=== PATIENT | male | born 1965 | race Caucasian/White ===

== ENCOUNTER 2019-06-03 06:20 | Inpatient (IN) ==
[2019-06-03] MEDS ORDERED: NiCARdipine 2.5 MG/10 ML Syringe IVPB ONE ×2 (06:24→09:36)
[2019-06-03] MEDS ORDERED: *HR* Midazolam HCl 5 MG/5 ML VIAL IVP ONE ×2 (06:31→11:29)
[2019-06-03] MEDS ORDERED: *HR* Etomidate 20 MG/10 ML AMPUL IVP ONE (06:32)
[2019-06-03] MEDS ORDERED: Famotidine 20 MG/2 ML VIAL ONE (06:32)
[2019-06-03] MEDS ORDERED: *HR* PHENYLEPHRINE 1,000 MCG/10 ML SYRINGE IVP ONE (06:32)
[2019-06-03] MEDS ORDERED: *HR* FentaNYL (PF) 1,000 MCG/20 ML VIAL ONE (06:32)
[2019-06-03] MEDS ORDERED: *HR* Rocuronium Bromide 50 MG/5 ML VIAL ONE ×3 (06:32→11:31)
[2019-06-03] MEDS ORDERED: Tranexamic Acid 1,000 MG/10 ML VIAL ONE ×2 (06:37→09:51)
[2019-06-03] MEDS ORDERED: Calcium Gluconate 1,000 MG/10 ML VIAL ONE (06:37)
[2019-06-03] MEDS ORDERED: Protamine Sulfate 250 MG/25 ML VIAL IVP ONE (06:37)
[2019-06-03] MEDS ORDERED: Clindamycin 900 MG/50 ML 900 MG/50 ML IV.SOLN IVPB ONE (06:59)
[2019-06-03] MEDS ORDERED: Albuterol 2.5 MG/3 ML NEBULIZER IH PRN ×2 (07:23→12:55)
[2019-06-03] MEDS ORDERED: Ringers Solution, Lactated 1,000 ML IVC SCH (07:30)
[2019-06-03] MEDS ORDERED: Aspirin 81 MG TAB.CHEW PO ONE (07:30)
[2019-06-03] MEDS: Chlorhexidine Rinse 15 ML MOUTHWASH MM SCH ×3 (07:35→21:09)
[2019-06-03] MEDS ORDERED: Dextrose 50 % in Water (Vial) 30 ML, Sodium Bicarbonate 20 MEQ, Potassium Chloride 15 M... TH ONE (07:45)
[2019-06-03] MEDS ORDERED: Norepinephrine 4 MG in 0.9 % Sodium Chloride 250 ML IVC PRN (07:45)
[2019-06-03] MEDS ORDERED: Insulin Human Regular 100 UNIT in 0.9 % Sodium Chloride 100 ML IV PRN (07:45)
[2019-06-03] MEDS ORDERED: Heparin 15,000 UNIT in 0.9 % Sodium Chloride 500 ML IV ONE (07:45)
[2019-06-03] MEDS ORDERED: Dextrose 50 % in Water (Vial) 30 ML, Sodium Bicarbonate 20 MEQ, Lidocaine 1% 5 ML, Insu... TH ONE ×3 (07:45)
[2019-06-03 08:26] LABS: ABG Base Excess -2 mEq/L (-2 to 3); ABG Chloride 108 mEq/L (98-107); ABG Glucose 120 mg/dL (60-95); ABG HCO3 24 mEq/L (21-27); ABG Ionized Calcium 1.27 mmol/L (1.15-1.35); ABG Oxygen Saturation 100 % (95-98); ABG PCO2 45 mmHg (35-45); ABG PH 7.34 pH Units (7.32-7.45); ABG PO2 316 mmHg (85-104); ABG TCO2 26 mEq/L (20-26)
[2019-06-03] MEDS ORDERED: niCARdipine 40 MG/200 ML MLS IVC ONE (09:22)
[2019-06-03 09:39] LABS: ABG Base Excess -4 mEq/L (-2 to 3); ABG Chloride 108 mEq/L (98-107); ABG Glucose 163 mg/dL (60-95); ABG HCO3 24 mEq/L (21-27); ABG Ionized Calcium 1.23 mmol/L (1.15-1.35); ABG Oxygen Saturation 98 % (95-98); ABG PCO2 54 mmHg (35-45); ABG PH 7.26 pH Units (7.32-7.45); ABG PO2 129 mmHg (85-104); ABG TCO2 26 mEq/L (20-26)
[2019-06-03] MEDS ORDERED: Esmolol 100 MG/10 ML VIAL IVP ONE (09:42)
[2019-06-03 10:25] LABS: ABG Base Excess 0 mEq/L (-2 to 3); ABG Chloride 104 mEq/L (98-107); ABG Glucose 236 mg/dL (60-95); ABG HCO3 26 mEq/L (21-27); ABG Ionized Calcium 1.08 mmol/L (1.15-1.35); ABG Oxygen Saturation 100 % (95-98); ABG PCO2 50 mmHg (35-45); ABG PH 7.33 pH Units (7.32-7.45); ABG PO2 600 mmHg (85-104); ABG TCO2 28 mEq/L (20-26)
[2019-06-03 11:00] LABS: ABG Base Excess -3 mEq/L (-2 to 3); ABG Chloride 103 mEq/L (98-107); ABG Glucose 233 mg/dL (60-95); ABG HCO3 24 mEq/L (21-27); ABG Ionized Calcium 1.09 mmol/L (1.15-1.35); ABG Oxygen Saturation 100 % (95-98); ABG PCO2 48 mmHg (35-45); ABG PO2 407 mmHg (85-104); ABG TCO2 25 mEq/L (20-26)
[2019-06-03] MEDS ORDERED: *HR* FentaNYL (PF) 250 MCG/5 ML VIAL ONE (11:29)
[2019-06-03 11:35] LABS: ABG Base Excess -1 mEq/L (-2 to 3); ABG Chloride 104 mEq/L (98-107); ABG Glucose 178 mg/dL (60-95); ABG HCO3 26 mEq/L (21-27); ABG Oxygen Saturation 100 % (95-98); ABG PCO2 54 mmHg (35-45); ABG PH 7.29 pH Units (7.32-7.45); ABG PO2 518 mmHg (85-104); ABG TCO2 28 mEq/L (20-26)
[2019-06-03] MEDS ORDERED: Albumin Human 5% 50.0 GM/1,000 ML VIAL ONE (11:49)
[2019-06-03 12:10] LABS: ABG Base Excess -3 mEq/L (-2 to 3); ABG Chloride 106 mEq/L (98-107); ABG Glucose 137 mg/dL (60-95); ABG HCO3 24 mEq/L (21-27); ABG Ionized Calcium 1.41 mmol/L (1.15-1.35); ABG Oxygen Saturation 97 % (95-98); ABG PCO2 53 mmHg (35-45); ABG PH 7.27 pH Units (7.32-7.45); ABG PO2 99 mmHg (85-104); ABG TCO2 26 mEq/L (20-26)
[2019-06-03] MEDS ORDERED: Naloxone 0.4 MG/ML INJ IVP PRN (12:55)
[2019-06-03] MEDS ORDERED: Ondansetron 4 MG/2 ML VIAL IVP PRN (12:55)
[2019-06-03] MEDS ORDERED: Acetaminophen 650 MG RECTAL SUPP RC PRN (12:55)
[2019-06-03] MEDS ORDERED: Potassium Chloride 40 MEQ/200 ML BAG IVPB PRN (12:55)
[2019-06-03] MEDS ORDERED: *HR* Dextrose 50 % in Water (Syg) 50 ML SYRINGE IVP PRN (12:55)
[2019-06-03] MEDS ORDERED: Insulin Regular, Human 100 UNIT/ML IV PRN (12:55)
[2019-06-03] MEDS ORDERED: Calcium Gluconate 1gm/50mL 1 GM/50 ML BAG IVPB PRN (12:55)
[2019-06-03] MEDS ORDERED: Acetaminophen 325 MG TABLET PO PRN (12:55)
[2019-06-03] MEDS ORDERED: 0.9 % Sodium Chloride w KCl 20 MEQ/1,000 ML MLS IVC SCH (13:00)
[2019-06-03] MEDS ORDERED: Norepinephrine 4 MG in 0.9 % Sodium Chloride 250 ML IVC SCH (13:00)
[2019-06-03] MEDS ORDERED: Insulin Human Regular 100 UNIT in 0.9 % Sodium Chloride 100 ML IVC SCH (13:00)
[2019-06-03] MEDS ORDERED: niCARdipine 20 MG in 0.9 % Sodium Chloride 192 ML IVC SCH (13:00)
[2019-06-03 13:09] LABS: ABG Base Excess -1 mEq/L (-2 to 3); ABG HCO3 27 mEq/L (21-27); ABG Oxygen Saturation 95 % (95-98); ABG PCO2 57 mmHg (35-45); ABG PH 7.28 pH Units (7.32-7.45); ABG PO2 88 mmHg (85-104); ABG TCO2 29 mEq/L (20-26); Blood Gas Modality VC; Blood Gas VT 600 cc
[2019-06-03 13:16] LABS: Basophils # 0.1 K/mcL (0.0-0.2); Basophils % 0.2 %; Eosinophils # 0.1 K/mcL (0.0-0.6); Eosinophils % 0.2 %; Hematocrit 39.1 % (37.5-50.1); Immature Granulocytes % 0.6 % (0-4); Lymphocytes % 8.7 %; Mean Corpuscular HGB Conc 33.5 g/dL (31.6-35.5); Mean Corpuscular Hemoglobin 31.8 pg (28.0-33.3); Mean Corpuscular Volume 94.9 fL (83.0-100.0); Mean Platelet Volume 10.7 fL (9.4-12.4); Monocytes # 1.6 K/mcL (0.0-1.3); Monocytes % 6.9 %; Platelet Count 109 K/mcL (140-400); Red Blood Count 4.12 M/mcL (4.19-5.50); Red Cell Distribution Width 13.5 % (11.5-14.5); Segmented Neutrophils % 83.4 %
[2019-06-03 13:17] LABS: Hemoglobin 13.1 g/dL (12.9-16.9); Neutrophils # 19.4 K/mcL (1.6-8.9); White Blood Count 23.2 K/mcL (4.3-11.1)
[2019-06-03 13:25] LABS: INR 1.3
[2019-06-03 13:29] LABS: Estimated Average Glucose 134 mg/dl
[2019-06-03 13:33] LABS: BUN/Creatinine Ratio 20 (6-26); Blood Urea Nitrogen 16 mg/dL (6-20); Calcium 8.8 mg/dL (8.6-10.3); Carbon Dioxide 25 mEq/L (23-29); Chloride 111 mEq/L (98-107); Glucose 112 mg/dL (70-105); Magnesium 2.4 mg/dL (1.6-2.6); Osmolality,Calculated 294 (280-300); Potassium 4.6 mEq/L (3.5-5.1); Sodium 141 mEq/L (136-145); eGFR For African Americans > 60 (> 60); eGFR For Non-African Americans > 60 (> 60)
[2019-06-03] MEDS: Pantoprazole 40 MG VIAL IVP SCH (13:43)
[2019-06-03] MEDS: Ketorolac 15 MG/ML VIAL IVP SCH ×3 (13:44→23:28)
[2019-06-03 13:45] LABS: Activated Partial Thrombo Time 116.3 Seconds (26.0-36.0); Prothrombin Time 14.7 Seconds (9.4-12.1)
[2019-06-03] MEDS ORDERED: Lidocaine 2% Syringe 100 MG/5 ML IV ONE (14:12)
[2019-06-03] MEDS ORDERED: *HR* Heparin 10,000 UNIT/10 ML VIAL IV ONE (14:12)
[2019-06-03] MEDS ORDERED: Heparin 1,000 UNITS/500 mL IV.SOLN IVC ONE (14:12)
[2019-06-03] MEDS ORDERED: Tranexamic Acid 1,000 MG/10 ML VIAL IVP ONE (14:12)
[2019-06-03] MEDS ORDERED: Mannitol 25% vial 12.5 GM/50 ML VIAL IVP ONE (14:12)
[2019-06-03] MEDS ORDERED: Sodium Bicarbonate 50 MEQ/50 ML VIAL IVC ONE (14:12)
[2019-06-03] MEDS ORDERED: *HR* Phenylephrine 10 MG/ML VIAL IVC ONE (14:12)
[2019-06-03] MEDS ORDERED: Albumin Human 25% 25 GM/100 ML IV.SOLN IV ONE (14:12)
[2019-06-03] MEDS ORDERED: *HR* Magnesium Sulfate 2 GM/50 ML PIGGYBACK IVPB ONE (14:12)
[2019-06-03] MEDS ORDERED: D5% in Water 250 ML IV BAG IV ONE (14:12)
[2019-06-03] MEDS: *HR* OxyCODONE/APAP 5/325 TABLET PO PRN ×2 (14:27→21:08)
[2019-06-03] MEDS: *HR* FentaNYL (PF) 100 MCG/2 ML VIAL IVP PRN ×3 (14:27→22:10)
[2019-06-03] MEDS ORDERED: 0.9 % Sodium Chloride 250 ML ONE (15:28)
[2019-06-03] MEDS: Clindamycin 900 MG/50 ML 900 MG/50 ML IV.SOLN IVPB SCH ×2 (16:39→23:29)
[2019-06-03 17:08] LABS: ABG Base Excess -1 mEq/L (-2 to 3); ABG HCO3 26 mEq/L (21-27); ABG Oxygen Saturation 97 % (95-98); ABG PCO2 49 mmHg (35-45); ABG PH 7.33 pH Units (7.32-7.45); ABG PO2 92 mmHg (85-104); ABG TCO2 27 mEq/L (20-26); Blood Gas Modality CPAP/PS; Blood Gas Pressure Support 5 cm H2O
[2019-06-03] MEDS: Metoclopramide 10 MG/2 ML VIAL IVP SCH ×2 (17:46→23:28)
[2019-06-03 18:21] LABS: ABG Base Excess -2 mEq/L (-2 to 3); ABG HCO3 24 mEq/L (21-27); ABG Oxygen Saturation 96 % (95-98); ABG PCO2 43 mmHg (35-45); ABG PH 7.35 pH Units (7.32-7.45); ABG PO2 87 mmHg (85-104); ABG TCO2 26 mEq/L (20-26)
[2019-06-03] MEDS: Furosemide 20 MG/2 ML VIAL IVP SCH (21:09)
[2019-06-04] MEDS: *HR* OxyCODONE/APAP 5/325 TABLET PO PRN ×4 (03:29→18:41)
[2019-06-04 03:49] LABS: Basophils % 0.2 %; Eosinophils % 0.1 %; Hematocrit 37.1 % (37.5-50.1); Hemoglobin 12.3 g/dL (12.9-16.9); Immature Granulocytes % 0.4 % (0-4); Lymphocytes # 2.3 K/mcL (0.6-4.6); Lymphocytes % 17.4 %; Mean Corpuscular HGB Conc 33.2 g/dL (31.6-35.5); Mean Corpuscular Hemoglobin 31.6 pg (28.0-33.3); Mean Corpuscular Volume 95.4 fL (83.0-100.0); Monocytes # 1.4 K/mcL (0.0-1.3); Monocytes % 10.5 %; Neutrophils # 9.4 K/mcL (1.6-8.9); Platelet Count 117 K/mcL (140-400); Red Blood Count 3.89 M/mcL (4.19-5.50); Red Cell Distribution Width 13.9 % (11.5-14.5); Segmented Neutrophils % 71.4 %; White Blood Count 13.2 K/mcL (4.3-11.1)
[2019-06-04 03:55] LABS: INR 1.1; Prothrombin Time 12.7 Seconds (9.4-12.1)
[2019-06-04 03:57] LABS: Activated Partial Thrombo Time 27.2 Seconds (26.0-36.0)
[2019-06-04 04:14] LABS: BUN/Creatinine Ratio 25 (6-26); Blood Urea Nitrogen 18 mg/dL (6-20); Calcium 8.3 mg/dL (8.6-10.3); Carbon Dioxide 25 mEq/L (23-29); Chloride 109 mEq/L (98-107); Glucose 104 mg/dL (70-105); Osmolality,Calculated 290 (280-300); Potassium 4.3 mEq/L (3.5-5.1); Sodium 139 mEq/L (136-145); eGFR For African Americans > 60 (> 60); eGFR For Non-African Americans > 60 (> 60)
[2019-06-04] MEDS: *HR* FentaNYL (PF) 100 MCG/2 ML VIAL IVP PRN (04:18)
[2019-06-04] MEDS: Ketorolac 15 MG/ML VIAL IVP SCH ×4 (05:49→23:16)
[2019-06-04] MEDS: Metoclopramide 10 MG/2 ML VIAL IVP SCH ×4 (05:49→23:16)
[2019-06-04] MEDS ORDERED: Aspirin 81 MG TAB.CHEW PO ONE (06:00)
[2019-06-04] MEDS: Furosemide 20 MG/2 ML VIAL IVP SCH ×2 (08:48→21:21)
[2019-06-04] MEDS: Chlorhexidine Rinse 15 ML MOUTHWASH MM SCH ×2 (08:48→21:43)
[2019-06-04] MEDS: Pantoprazole 40 MG VIAL IVP SCH (08:48)
[2019-06-04] MEDS ORDERED: Aspirin Enteric Coated 81 MG Tablet PO SCH (09:00)
[2019-06-04] MEDS ORDERED: *HR* Dextrose 50 % in Water (Syg) 50 ML SYRINGE IVP PRN (13:30)
[2019-06-04] MEDS ORDERED: Ondansetron 4 MG/2 ML VIAL IVP PRN (13:30)
[2019-06-04] MEDS ORDERED: Naloxone 0.4 MG/ML INJ IVP PRN (13:30)
[2019-06-04] MEDS ORDERED: Nitroglycerin 0.4 MG TAB.SUBL SL PRN (13:30)
[2019-06-04] MEDS ORDERED: Insulin Regular, Human 100 UNIT/ML IV PRN (13:30)
[2019-06-04] MEDS ORDERED: Albuterol 2.5 MG/3 ML NEBULIZER IH PRN (13:30)
[2019-06-04] MEDS ORDERED: Dextrose Gel 15 GM/37.5 ML TUBE PO PRN ×2 (13:30)
[2019-06-04] MEDS ORDERED: Acetaminophen 325 MG TABLET PO PRN (13:30)
[2019-06-04] MEDS ORDERED: D5% in Water 1,000 ML IVC PRN (13:30)
[2019-06-04] MEDS ORDERED: Insulin Human Regular 100 UNIT in 0.9 % Sodium Chloride 100 ML IVC SCH (13:30)
[2019-06-04] MEDS: *HR* Heparin 5,000 UNIT/ML VIAL SQ SCH ×2 (14:19→18:05)
[2019-06-04] MEDS: Insulin LISPRO 300 UNITS/3 ML VIAL SQ SCH ×3 (15:21→21:22)
[2019-06-04] MEDS: *HR* HYDROmorphone 2 MG/ML SYRINGE IVP PRN ×2 (16:06→21:49)
[2019-06-05] MEDS: *HR* OxyCODONE/APAP 5/325 TABLET PO PRN ×4 (03:58→23:39)
[2019-06-05 04:14] LABS: Eosinophils % 0.8 %; Immature Granulocytes % 0.4 % (0-4); Red Cell Distribution Width 13.4 % (11.5-14.5)
[2019-06-05 04:16] LABS: Basophils % 0.2 %; Eosinophils # 0.1 K/mcL (0.0-0.6); Hematocrit 31.9 % (37.5-50.1); Hemoglobin 10.5 g/dL (12.9-16.9); Immature Platelets 5.8 % (1.1-6.1); Lymphocytes # 1.9 K/mcL (0.6-4.6); Lymphocytes % 15.7 %; Mean Corpuscular HGB Conc 32.9 g/dL (31.6-35.5); Mean Corpuscular Volume 97.3 fL (83.0-100.0); Mean Platelet Volume 11.2 fL (9.4-12.4); Monocytes # 1.2 K/mcL (0.0-1.3); Monocytes % 9.8 %; Neutrophils # 8.6 K/mcL (1.6-8.9); Platelet Count 92 K/mcL (140-400); Red Blood Count 3.28 M/mcL (4.19-5.50); Segmented Neutrophils % 73.1 %; White Blood Count 11.8 K/mcL (4.3-11.1)
[2019-06-05 04:18] LABS: Platelet Estimate Decreased (Normal)
[2019-06-05 04:28] LABS: BUN/Creatinine Ratio 31 (6-26); Blood Urea Nitrogen 22 mg/dL (6-20); Calcium 7.6 mg/dL (8.6-10.3); Carbon Dioxide 25 mEq/L (23-29); Chloride 107 mEq/L (98-107); Glucose 145 mg/dL (70-105); Osmolality,Calculated 288 (280-300); Potassium 3.8 mEq/L (3.5-5.1); Sodium 136 mEq/L (136-145); eGFR For African Americans > 60 (> 60); eGFR For Non-African Americans > 60 (> 60)
[2019-06-05] MEDS: Metoclopramide 10 MG/2 ML VIAL IVP SCH ×4 (05:39→23:38)
[2019-06-05] MEDS: *HR* HYDROmorphone 2 MG/ML SYRINGE IVP PRN ×2 (05:39→13:48)
[2019-06-05] MEDS: Ketorolac 15 MG/ML VIAL IVP SCH ×3 (06:30→17:24)
[2019-06-05] MEDS: *HR* Heparin 5,000 UNIT/ML VIAL SQ SCH ×2 (06:30→17:03)
[2019-06-05] MEDS: Aspirin Enteric Coated 81 MG Tablet PO SCH (08:15)
[2019-06-05] MEDS: Chlorhexidine Rinse 15 ML MOUTHWASH MM SCH ×2 (08:15→20:21)
[2019-06-05] MEDS: Insulin LISPRO 300 UNITS/3 ML VIAL SQ SCH ×4 (08:15→20:23)
[2019-06-05] MEDS: Furosemide 20 MG/2 ML VIAL IVP SCH (08:16)
[2019-06-05] MEDS ORDERED: Pantoprazole 40 MG VIAL IVP SCH (09:00)
[2019-06-06] MEDS: Ketorolac 15 MG/ML VIAL IVP SCH ×2 (00:24→05:16)
[2019-06-06] MEDS: *HR* Heparin 5,000 UNIT/ML VIAL SQ SCH (05:16)
[2019-06-06] MEDS: *HR* OxyCODONE/APAP 5/325 TABLET PO PRN ×2 (05:37→10:32)
[2019-06-06] MEDS: Metoclopramide 10 MG/2 ML VIAL IVP SCH (05:37)
[2019-06-06] MEDS: Aspirin Enteric Coated 81 MG Tablet PO SCH (09:20)
[2019-06-06] MEDS: Insulin LISPRO 300 UNITS/3 ML VIAL SQ SCH (09:20)
[2019-06-06] MEDS: Chlorhexidine Rinse 15 ML MOUTHWASH MM SCH (09:20)
[2019-06-06 15:21] VITALS: BP 118/65
[2019-06-06] MEDS ORDERED: Famotidine 20 MG TABLET PO SCH (21:00)
== END 2019-06-06 12:02 | disposition home or self-care (01) | DRG 236 ==
LOC: SAMDAY 06:20 → ICNU 11:41 → 2NNU 06-04 18:15
PROVIDERS: ADMIT Thoracic Surgery (Cardiothoracic Vascular Surgery); ATTEND Thoracic Surgery (Cardiothoracic Vascular Surgery)

== ENCOUNTER 2021-12-23 23:04 | Inpatient (IN) ==
[2021-12-24 00:58] LABS: Basophils % 0.2 %; Eosinophils # 0.1 K/mcL (0.0-0.6); Eosinophils % 1.4 %; Hemoglobin 14.2 g/dL (12.9-16.9); Immature Granulocytes % 0.1 % (0-4); Lymphocytes # 3.7 K/mcL (0.6-4.6); Mean Corpuscular HGB Conc 33.8 g/dL (31.6-35.5); Mean Corpuscular Hemoglobin 31.8 pg (28.0-33.3); Mean Corpuscular Volume 94.2 fL (83.0-100.0); Mean Platelet Volume 11.2 fL (9.4-12.4); Monocytes # 0.8 K/mcL (0.0-1.3); Monocytes % 9.2 %; Platelet Count 198 K/mcL (140-400); Red Blood Count 4.46 M/mcL (4.19-5.50); Red Cell Distribution Width 13.1 % (11.5-14.5); Segmented Neutrophils % 46.1 %; White Blood Count 8.6 K/mcL (4.3-11.1)
[2021-12-24 01:18] LABS: BUN/Creatinine Ratio 23 (6-26); Blood Urea Nitrogen 19 mg/dL (6-20); Calcium 9.2 mg/dL (8.6-10.3); Carbon Dioxide 22 mEq/L (23-29); Chloride 110 mEq/L (98-107); Glucose 194 mg/dL (70-105); Osmolality,Calculated 296 (280-300); Potassium 4.2 mEq/L (3.5-5.1); Sodium 139 mEq/L (136-145)
[2021-12-24 01:19] LABS: Activated Partial Thrombo Time 29.6 Seconds (26.0-36.0); INR 0.9; Prothrombin Time 10.3 Seconds (9.4-12.1); Troponin I < 0.03 ng/mL (< 0.04)
[2021-12-24] MEDS ORDERED: Morphine Sulfate 2 MG/ML SYRINGE IVP ONE ×2 (01:27→03:25)
[2021-12-24] MEDS ORDERED: Ondansetron 4 MG/2 ML VIAL IVP ONE (01:28)
[2021-12-24] MEDS ORDERED: Iopamidol - 370 500 ML MLS IVP ONE (02:09)
[2021-12-24] MEDS ORDERED: *HR* Heparin 5,000 UNIT/ML VIAL IVP ONE (03:54)
[2021-12-24] MEDS ORDERED: *HR* Heparin 5,000 UNIT/ML VIAL IVP PRN ×2 (03:54)
[2021-12-24] MEDS ORDERED: Prochlorperazine 10 MG/2 ML VIAL IVP PRN (04:29)
[2021-12-24] MEDS ORDERED: Morphine Sulfate 2 MG/ML SYRINGE IVP PRN (04:30)
[2021-12-24] MEDS ORDERED: Acetaminophen 325 MG TABLET PO PRN (04:51)
[2021-12-24] MEDS ORDERED: Naloxone 0.4 MG/ML INJ IVP PRN (04:51)
[2021-12-24] MEDS ORDERED: Ondansetron 4 MG/2 ML VIAL IVP PRN (04:51)
[2021-12-24 04:57] LABS: Amphetamine Screen,Urine Negative ng/mL (Cutoff=1000); Barbiturate Screen,Urine Negative ng/mL (Cutoff=200); Benzodiazepines Screen,Urine Negative ng/mL (Cutoff=200); Cannabinoid Screen,Urine Negative ng/mL (Cutoff = 50); Cocaine Screen,Urine Negative ng/mL (Cutoff= 300); Opiate Screen,Urine Positive ng/mL (Cutoff=300); Phencyclidine Screen,Urine Negative ng/mL (Cutoff=25)
[2021-12-24] MEDS: Heparin 25,000UNIT/250ML 1/2NS 25,000 UNIT/250 ML IV.SOLN IVC SCH (05:01)
[2021-12-24] MEDS ORDERED: Dextrose Gel 15 GM/37.5 ML TUBE PO PRN ×2 (07:38)
[2021-12-24] MEDS ORDERED: *HR* Dextrose 50 % in Water (Syg) 50 ML SYRINGE IVP PRN (07:38)
[2021-12-24] MEDS ORDERED: D5% in Water 1,000 ML IVC PRN (07:38)
[2021-12-24] MEDS: Aspirin Enteric Coated 81 MG Tablet PO SCH (08:27)
[2021-12-24] MEDS: Insulin LISPRO 300 UNITS/3 ML VIAL SUBQ SCH ×2 (11:56→18:16)
[2021-12-24] MEDS ORDERED: *HR* Metoprolol 5 MG/5 ML VIAL IVP PRN (12:07)
[2021-12-24] MEDS ORDERED: *HR* Midazolam HCl 2 MG/2 ML VIAL ONE (15:00)
[2021-12-24] MEDS ORDERED: *HR* FentaNYL (PF) 100 MCG/2 ML VIAL ONE (15:00)
[2021-12-24] MEDS ORDERED: 0.9 % Sodium Chloride 2,000 ML ONE (15:00)
[2021-12-24] MEDS ORDERED: Iopamidol - 370 200 ML INFUS..BTL ONE ×2 (15:00→15:41)
[2021-12-24] MEDS ORDERED: *HR* Heparin 10,000 UNIT/10 ML VIAL ONE (15:00)
[2021-12-24] MEDS ORDERED: Nitroglycerin 1,000 MCG/5 ML VIAL IV ONE (15:00)
[2021-12-24] MEDS ORDERED: Heparin 1,000 UNITS/500 mL 500 ML ONE (15:00)
[2021-12-24] MEDS ORDERED: Tirofiban 12.5 MG/250ML 12.5 MG/250 ML BAG ONE (15:41)
[2021-12-24] MEDS ORDERED: NITROPRUSSIDE IVC ONE (15:52)
[2021-12-24] MEDS ORDERED: SODIUM CHLORIDE IVC ONE (15:52)
[2021-12-24] MEDS ORDERED: Tirofiban 12.5 MG/250ML 12.5 MG/250 ML BAG IVC SCH (16:15)
[2021-12-24] MEDS: carvediloL 6.25 MG TABLET PO SCH (17:03)
[2021-12-24] MEDS: NIFEdipine XL (24 HR) 60 MG TAB.ER.24 PO SCH (17:03)
[2021-12-25] MEDS: Insulin LISPRO 300 UNITS/3 ML VIAL SUBQ SCH ×2 (00:21→06:00)
[2021-12-25 03:34] LABS: Hematocrit 42.8 % (37.5-50.1); Hemoglobin 14.3 g/dL (12.9-16.9); Mean Corpuscular HGB Conc 33.4 g/dL (31.6-35.5); Mean Corpuscular Hemoglobin 31.6 pg (28.0-33.3); Mean Corpuscular Volume 94.5 fL (83.0-100.0); Mean Platelet Volume 11.8 fL (9.4-12.4); Platelet Count 191 K/mcL (140-400); Red Blood Count 4.53 M/mcL (4.19-5.50); Red Cell Distribution Width 13.2 % (11.5-14.5); White Blood Count 9.6 K/mcL (4.3-11.1)
[2021-12-25 04:14] LABS: BUN/Creatinine Ratio 19 (6-26); Blood Urea Nitrogen 16 mg/dL (6-20); Calcium 8.7 mg/dL (8.6-10.3); Carbon Dioxide 21 mEq/L (23-29); Chloride 107 mEq/L (98-107); Chol/HDL Ratio 3.7 (0-4.9); Cholesterol 129 mg/dL (< 200); Glucose 139 mg/dL (70-105); HDL Cholesterol 35 mg/dL (40-59); Magnesium 2.1 mg/dL (1.6-2.6); Osmolality,Calculated 289 (280-300); Potassium 4.1 mEq/L (3.5-5.1); Sodium 138 mEq/L (136-145); Triglycerides 765 mg/dL (< 150)
[2021-12-25] MEDS: Heparin 25,000UNIT/250ML 1/2NS 25,000 UNIT/250 ML IV.SOLN IVC SCH (06:00)
[2021-12-25 06:43] VITALS: BP 126/64; PULSE 67; TEMP 98.8; O2SAT 97
[2021-12-25] MEDS ORDERED: VITAMIN B COMPLEX PO SCH (09:00)
[2021-12-25] MEDS ORDERED: Ascorbic Acid 500 MG TABLET PO SCH (09:00)
[2021-12-25] MEDS ORDERED: Cholecalciferol (D-3) 1,000 UNIT (25MCG) TABLET PO SCH (09:00)
[2021-12-25] MEDS ORDERED: Nicotine 14 MG PATCH.TD24 TD SCH (09:00)
[2021-12-25] MEDS ORDERED: Multivit/Ca/Min/Fe/FA 1 TAB TABLET PO SCH (09:00)
[2021-12-25] MEDS: NIFEdipine XL (24 HR) 60 MG TAB.ER.24 PO SCH (09:03)
[2021-12-25] MEDS: Aspirin Enteric Coated 81 MG Tablet PO SCH (09:04)
[2021-12-25] MEDS: carvediloL 6.25 MG TABLET PO SCH (09:04)
[2021-12-25] MEDS ORDERED: carvediloL 6.25 MG TABLET PO SCH (17:00)
== END 2021-12-25 12:19 | disposition home or self-care (01) | DRG 247 ==
LOC: EMEROOARM 23:04 → 2NENU 23:04 → SUATTDRO 12-24 04:27 → 2NENU 12-24 05:39
PROVIDERS: ADMIT Internal Medicine; ATTEND Pharmacist